=== PATIENT | female | born 1985 | race African-American/Black ===

== ENCOUNTER 2017-02-08 17:48 | Emergency (ER) | payer OTHER ==
[~2017-02-08] VITALS: Ht 157.5 cm; Wt 65.8 kg
--- NOTE | ~2017-02-08 | EKG ---
[address] [address] ELECTROCARDIOGRAM REPORT Name: ANGELA STEVENSON Room #: [facility]#: [id number] Admission: 02/08/17 Attend Phys: Discharge: 02/08/17 Date of : 87 Report #: [id number] THIS REPORT FOR: //name// [facility] [place], [place] ED Test Date: 2017-02-08 Test Time: 17:53:52 Pat Name: ANGELA STEVENSON Department: Room: Gender: F [employer] Analysis Manager: Ronel CROOK : 1985 Requested By: Oziel Ferrer Order Number: [id number] MD: Dileep Olivier Measurements Intervals [place] Rate: 81 P: 31 AR: 155 QRS: 32 QRSD: 88 T: 0 QT: 420 QTc: 488 Interpretive Statements Sinus rhythm Borderline prolonged QT interval Compared to ECG 06/18/2013 19:24:31 Sinus arrhythmia no longer present Electronically Signed On 02-09-2017 9:26:38 CDT by Dileep Olivier [email or web address] <ELECTRONICALLY SIGNED> By: Dileep Olivier MD, [facility] 02/09/17 0926 D: [id number] Dileep Olivier MD, FAC /EPI
[~2017-02-08 17:48] MED LIST: AMOXICILLIN500 M1 PO; ANUSOL-HC30 GM RC; ASPIRIN EC325 M1 PO; ASPIRIN325; ASPIRIN81 M2 PO; AUGMENTIN 875875 M1 PO; CITRUCEL CLEAR539 G1 PO; CLEOCIN HCL150 MG PO; FLEXERIL PO; HYDROCODONE-AP1 EAC6 PO; IBUPROFEN 600600 M1 PO; IBUPROFEN 800800 MG PO; IRON; KEFLEX500 MG PO; MEDROLDOSEPACK PO; MOBIC15 MG PO; NOHOMEMEDICATIONS; NORCO 5-325 TA1 EACH PO; PENICILLIN V P500 MG PO; PENICILLIN VK500 MG PO; PERCOCET 5-3251 EACH PO; PERCOCET 7.5-31 EACH PO; PERIDEX 0.12%473 M1 SSP; PREDNISONE 20 M20 M1 PO; PRENATAL; PROTONIX40 MG PO; PROVENTIL HFA6.7 G1 INH; ROBITUSSIN15 MG/5 ML PO; TOBRAMYCIN SULFA5 ML OP; TOBREX5 ML OPHTHALMIC; XANAX 0.5 MG0.5 M1 PO; ZOFRAN ODT4 MG PO
[2017-02-08] MEDS ORDERED: ASPIRIN325 PO (18:08)
[2017-02-08 18:52] LABS: ABSOLUTE NEUTROPHILS 3.5 thou/uL (1.4-8.2); BASOPHILS 0.7 % (0.0-2.0); EOSINOPHILS 0.9 % (0.0-3.0); HEMATOCRIT 38.3 % (37.0-47.0); HEMOGLOBIN 12.8 gm/dL (12.0-15.0); LYMPHOCYTES 37.7 % (24.0-44.0); MANUAL DIFF NO; MCH 25.1 pg (26.0-34.0); MCHC 33.3 g/dL (28.0-37.0); MCV 75.4 fL (80.0-100.0); MONOCYTES 8.3 % (1.0-8.0); PLATELET COUNT 264 thou/uL (150-400); POLYS 52.4 % (36.0-66.0); RBC 5.08 mil/uL (4.20-5.00); RDW 13.6 % (10.5-14.5); WBC 6.7 thou/uL (4.0-11.0)
[2017-02-08] MEDS ORDERED: NAPROSYN500 MG PO (19:44)
[2017-02-08 19:55] VITALS: BP 114/75
== END 2017-02-08 19:56 | disposition home or self-care (01) ==
LOC: ER 17:48
PROVIDERS: Nurse Practitioner
DX: M94.0 Chondrocostal junction syndrome [Tietze] (principal); J45.909 Unspecified asthma, uncomplicated; F17.210 Nicotine dependence, cigarettes, uncomplicated; Z90.49 Acquired absence of other specified parts of digestive tract

== ENCOUNTER 2017-04-28 09:20 | Emergency (ER) | payer OTHER ==
[~2017-04-28] VITALS: Ht 157.5 cm; Wt 64.9 kg
[~2017-04-28 09:20] MED LIST changes: +ASPIRIN325 PO; +NAPROSYN500 MG PO
[2017-04-28] MEDS ORDERED: NAPROSYN500 MG PO (10:12)
[2017-04-28 10:39] VITALS: BP 108/76
== END 2017-04-28 10:39 | disposition home or self-care (01) ==
LOC: ER 09:20
DX: M25.562 Pain in left knee (principal); R07.89 Other chest pain; J45.909 Unspecified asthma, uncomplicated; F17.210 Nicotine dependence, cigarettes, uncomplicated; Z90.49 Acquired absence of other specified parts of digestive tract; V43.52XA Car driver injured in collision with other type car in traffic accident, initial encounter; Y93.I9 Activity, other involving external motion; Y92.415 Exit ramp or entrance ramp of street or highway as the place of occurrence of the external cause; Y99.8 Other external cause status

== ENCOUNTER 2018-02-27 10:51 | Emergency (ER) | payer OTHER ==
[~2018-02-27] VITALS: Ht 157.5 cm; Wt 61.7 kg
[2018-02-27] MEDS ORDERED: CYMBALTA20 MG PO (11:05)
[2018-02-27] MEDS ORDERED: NORCO 5-325 TA1 EACH PO (12:19)
[2018-02-27] MEDS ORDERED: SENNA-DOCUSATE1 EACH PO (12:19)
[2018-02-27] MEDS ORDERED: TOBRAMYCIN SULFA5 M1 OPHTHALMIC (12:19)
[2018-02-27 12:34] VITALS: BP 114/69
== END 2018-02-27 12:35 | disposition home or self-care (01) ==
LOC: ER 10:51
DX: S05.01XA Injury of conjunctiva and corneal abrasion without foreign body, right eye, initial encounter (principal); F17.210 Nicotine dependence, cigarettes, uncomplicated; J45.909 Unspecified asthma, uncomplicated; Z90.89 Acquired absence of other organs; W20.8XXA Other cause of strike by thrown, projected or falling object, initial encounter; Y92.89 Other specified places as the place of occurrence of the external cause; Y99.0 Civilian activity done for income or pay